=== PATIENT | male | born 1960 | race Caucasian/White ===

== ENCOUNTER 2016-11-28 22:34 | Emergency (ER) | payer MEDICARE ==
--- NOTE | ~2016-11-28 | EKG ---
PATIENT: AFSHIN BARRAZA UNIT #: [id number] Ventricular Rate: 105 BPM Atrial Rate: 105 BPM P-R Interval: 136 ms QRS Duration: 90 ms Q-T Interval: 360 ms QTC Calculation(Bezet): 475 ms P [place]: 42 degrees Calculated R [place]: 40 degrees Calculated T [place]: 40 degrees Diagnosis Line: Sinus tachycardia Diagnosis Line: Otherwise normal ECG Diagnosis Line: Diagnosis Line: Confirmed by MERI ANDRADE MD ([id number]) on 11/29/2016 Diagnosis Line: 9:41:00 AM INTERPRETING MD: LUPE RECINOS
--- NOTE | ~2016-11-28 | CR195 ---
[facility] A Service of [facility] & [facility] RADIOLOGY TEXT RESULTS PATIENT: AFSHIN BARRAZA LOCATION: [facility] : 56 UNIT #: [id number] AGE: [address]: Sam Mckeon MD SEX: M ORDER DR: [id number] [facility] [address] [place], [place] [address] [id number] E MR#: [id number] Acc #: [id number] NAME: AFSHIN BARRAZA. : 1960 SEX: M STUDY DATE/TIME: 11/28/2016 22:33 UNIT: [facility] ROOM: STUDY DESCRIPTION: CR Neck Soft Tissue Attending Physician: Sam Mckeon M.D. Ordering Physician: Sam Mckeon M.D. Primary Care Physician: Gia Vasquez M.D. MEDICAL IMAGING REPORT This report is preliminary unless electronic signature is present EXAM Soft tissue neck, [address] soft tissue neck dated February 21, 2016. INDICATIONS 55-year-old male with sensation of the throat closing up and dyspnea since 7:00 p.m. tonight. FINDINGS Right internal jugular-approach chest port catheter is noted with the tip near the confluence of the right brachiocephalic vein and SVC. There are multilevel degenerative changes of the cervical spine. Prevertebral soft tissue thickness appears increased at the level of C5, measuring up to 2.4 cm. Airway, however, appears widely patent at this level. This may reflect sequelae of the patient's known head and neck cancer. There appears to be mild narrowing of the airway in the neck on frontal view. IMPRESSION 1. Narrowing of the hypopharynx over a long segment of uncertain acuity. Clinical correlation recommended. If definitive characterization is desired, CT soft tissue neck with IV contrast could be performed. Bones appear intact. There are multilevel degenerative changes of the cervical spine. 2. Prevertebral soft tissue thickness is just above normal limits. This may be within normal limits for this patient. Correlation to exclude signs of abscess recommended. Dictated by... Rosendo Badillo M.D. THIS IS AN ELECTRONICALLY VERIFIED REPORT STS. [facility] A Service of [facility] & [facility] RADIOLOGY TEXT RESULTS PATIENT: AF[facility] BAR[id number] 56 UNIT #: [id number] AGE: [address]: Sam Mckeon MD SEX: M ORDER DR: Rosendo Badillo M.D. at 12/04/2016 5:22 PM [facility]/fab TD: 11/29/2016 02:57 JOB #: [id number] MEDICAL IMAGING REPORT Page 1 of 1 COPY
--- NOTE | ~2016-11-28 | CR72 ---
[facility] A Service of [facility] & [facility] RADIOLOGY TEXT RESULTS PATIENT: AFSHIN BARRAZA LOCATION: [facility] : 56 UNIT #: [id number] AGE: [address]: Sam Mckeon MD SEX: M ORDER DR: [id number] [facility] [address] [place], [place] [address] [id number] E MR#: [id number] Acc #: [id number] NAME: AFSHIN BARRAZA. : 1960 SEX: M STUDY DATE/TIME: 11/28/2016 22:33 UNIT: [facility] ROOM: STUDY DESCRIPTION: CR Chest Single View Portable Attending Physician: Sam Mckeon M.D. Ordering Physician: Sam Mckeon M.D. Primary Care Physician: Gia Vasquez M.D. MEDICAL IMAGING REPORT This report is preliminary unless electronic signature is present EXAM AP portable chest DATE 11/28/2016 HISTORY 55-year-old male with shortness of breath and cough "feels like throat is closing up." Symptoms began at 1900. History of throat and lung cancer with radiation therapy and chemotherapy. COMPARISON Chest radiograph 05/31/2012. PET CT 04/05/2016. FINDINGS There is abnormal right perihilar-infrahilar opacity thought to involve both the right middle lobe and right lower lobe. How much of this represents the patient's known lung cancer versus postradiation change is unclear. There is volume loss in the right hemithorax with resulting elevation of the right hemidiaphragm. There are no more-recent chest x-ray studies at this institution for correlation. The left lung is clear. Heart size is normal. Right chest wall Port-A-Cath tip extends to the upper SVC level. No pneumothorax or pleural effusion is seen. IMPRESSION 1. Abnormal opacity in the right perihilar and infrahilar regions thought to correspond to the right middle lobe and right lower lobes. How much of this represents the patient's known history of lung cancer or postradiation fibrosis is unclear. There are no recent chest x-ray studies at this institution for comparison. 2. The left lung remains clear. 3. No pneumothorax. [facility]. [facility] A Service of [facility] & [facility] RADIOLOGY TEXT RESULTS PATIENT: AFSHIN BARRAZA LOCATION: [facility] : 56 UNIT #: [id number] AGE: [address]: Sam Mckeon MD SEX: M ORDER DR: Dictated by... Elham June M.D. THIS IS AN ELECTRONICALLY VERIFIED REPORT Elham June M.D. at 11/29/2016 10:07 PM [facility]/fab TD: 11/29/2016 03:15 JOB #: [id number] MEDICAL IMAGING REPORT Page 1 of 1 COPY
[2016-11-28 22:31] LABS: BASOPHIL# 0.1 X10e3 (0-0.3); BASOPHIL% 0.9 % (0-2.5); DIFF IND NO; EOSINOPHIL# 0.1 X10e3 (0-0.7); EOSINOPHIL% 1.1 % (0.0-7.0); LYMPHOCYTE# 0.8 X10e3 (1.0-3.5); LYMPHOCYTE% 10.4 % (17.0-45.0); MEAN CELL VOLUME 87.8 FL (83-96); MEAN CORPUSCULAR HEMOGLOBIN 28.8 PG (28-34); MEAN CORPUSCULAR HGB CONC 32.7 g/dL (30-36); MEAN PLATELET VOLUME 8.9 FL (6.5-11.5); MONOCYTE# 0.5 X10e3 (0-1.0); MONOCYTE% 6.7 % (3.0-12.0); NEUTROPHIL# 6.3 X10e3 (1.5-7.1); NEUTROPHIL% 80.9 % (40-75); PLATELET COUNT 140 X10e3 (140-420); RED BLOOD COUNT 5.92 X10e (3.90-5.60); RED CELL DISTRIBUTION WIDTH 16.6 % (11.0-15.5); WHITE BLOOD COUNT 7.8 X10e3 (4.0-10.5)
[~2016-11-28 22:34] MED LIST: ACTOS PO; ADVAIR 250-501 EACH IN; ADVAIR 5001 DISK W/D PO; ALBUTEROL 0.5ML INH; ALBUTEROL MININEB NEB; ALBUTEROL17 GM INH; AMITRYPTYLINE PO; BUSPAR PO; CADUET 5 MG/101 TAB PO; CELEXA PO; CIPRO PO; CYMBALTA PO; DALIRESP500 MCG PO; FLEXERIL PO; GLIPIZIDE2.5 MG/BOT PO; HUMALOG100 U/ML SQ; IPRATROPIUM; LEVAQUIN750 MG PO; LISINOPRIL PO; LISINOPRIL20 MG PO; MEDROL DOSEPAK4 MG; METFORMIN HCL500 M1 PO; METFORMIN PO; METHADONE PO; MOTION SICKNESS25 M4 PO; MS CONTIN60 MG PO; NEURONTIN100 MG PO; NICOTINE TRANSD21 MG EXT; NORVASC PO; OXYCODONE HCL30 MG PO; OXYCONTIN 20MG20 MG PO; OXYCONTIN PO; OXYCONTIN60 MG PO; OXYGEN; PERCOCET 10/3251 TAB PO; PREDNISONE PO; SPIRIVA18 MCG INH; TUDORZA PRESS400 MCG IN; WELLBUTRIN100 MG PO; ZOCOR PO
[2016-11-28 23:00] LABS: ALBUMIN SERUM 3.6 g/dL (3.5-5.0); BILIRUBIN, DIRECT 0.2 mg/dL (0.0-0.2); BILIRUBIN,INDIRECT 0.8 mg/dL (0.0-0.9); BUN/CREATININE RATIO 14.54; CALCIUM SERUM 8.8 mg/dL (8.4-10.2); CREATININE SERUM 1.1 mg/dL (0.6-1.4); GLOM FILT RATE Estimated 74.1 mL/min (>60); POTASSIUM 3.8 mmol/L (3.5-5.1); PROTEIN TOTAL SERUM 7.4 g/dL (6.0-8.3)
== END 2016-11-29 00:11 | disposition home or self-care (01) ==
LOC: CED 22:34
PROVIDERS: Emergency Medicine
DX: J44.1 Chronic obstructive pulmonary disease with (acute) exacerbation (principal); F41.9 Anxiety disorder, unspecified; E11.9 Type 2 diabetes mellitus without complications; E78.5 Hyperlipidemia, unspecified; I10 Essential (primary) hypertension; K21.9 Gastro-esophageal reflux disease without esophagitis; F17.200 Nicotine dependence, unspecified, uncomplicated; Z79.899 Other long term (current) drug therapy
CPT/HCPCS: 36415; 70360; 71010; 80048; 80076; 85025; 93005; 96372; 99284; J1100